=== PATIENT | female | born 1990 | race Caucasian/White ===

== ENCOUNTER 2020-12-23 19:47 | Emergency (ER) | payer OTHER ==
[~2020-12-23] VITALS: Ht 152.4 cm; Wt 57.0 kg
[2020-12-23] MEDS ORDERED: IBUPROFEN 600MG TABLET PO STA (21:02)
[2020-12-23] MEDS ORDERED: ONDANSETRON 4MG ODT PO STA (21:02)
[2020-12-23] MEDS ORDERED: ACETAMINOPHEN 325MG TABLET PO STA (21:02)
[2020-12-23 22:23] LABS: BASOPHILS % 0.3 % (0.0-2.0); EOSINOPHILS % 0.5 % (0.0-5.0); HEMATOCRIT. 39.1 % (36.0-48.0); HEMOGLOBIN. 13.6 g/dL (12.0-16.0); MEAN CORPUSCULAR HEMOGLOBIN 30.1 pg (28.0-32.0); MEAN CORPUSCULAR VOLUME 86.7 fL (81.0-99.0); MEAN PLATELET VOLUME 9.1 fl (7.4-10.4); MONOCYTES % 6.2 % (2.0-8.0); PLATELET 202 x1000/uL (130-400); RED BLOOD CELL COUNT 4.51 mill/uL (4.2-5.4); RED CELL DISTRIBUTION WIDTH 13.1 % (11.6-14.6)
[2020-12-23 22:28] LABS: CHLORIDE 105 mEq/L (98-107)
[2020-12-23 22:30] LABS: CLARITY URINE CLOUDY (CLEAR); COLOR URINE YELLOW (YELLOW); KETONES URINE 2+ (NEGATIVE); LEUKOCYTE ESTERASE URINE 2+ (NEGATIVE); NITRITE URINE POSITIVE (NEGATIVE); OCCULT BLOOD URINE 3+ (NEGATIVE); PH URINE 7.5 (4.5-8.0); PROTEIN URINE 2+ (NEGATIVE); SPECIFIC GRAVITY URINE 1.019 (1.005-1.030)
[2020-12-23 22:31] LABS: PROTHROMBIN TIME 10.9 sec (9.6-11.0)
[2020-12-23 22:32] LABS: ETHANOL BLOOD < 10 mg/dL
[2020-12-23 22:39] LABS: HCG SCREEN NEGATIVE
[2020-12-23 22:41] LABS: *AMPHETAMINES SCREEN URINE NEGATIVE (NEGATIVE); *BARBITURATES SCREEN URINE NEGATIVE (NEGATIVE); *BENZODIAZEPINES SCREEN URINE NEGATIVE (NEGATIVE); *COCAINE SCREEN URINE NEGATIVE (NEGATIVE); METHADONE URINE SCREEN NEGATIVE (NEGATIVE); OPIATES URINE SCREEN NEGATIVE (NEGATIVE)
[2020-12-23 22:42] LABS: PHENCYCLIDINE URINE SCREEN NEGATIVE (NEGATIVE)
[2020-12-23 22:53] LABS: CANNABINOID URINE SCREEN PRESUMTIVE POSITIVE (NEGATIVE)
[2020-12-24] MEDS ORDERED: NITR-87 MT (00:25)
[2020-12-24] MEDS ORDERED: NITROFURANTOIN 100MG M/M CAPSULE PO ONE (00:30)
[2020-12-24 01:05] VITALS: BP 115/84
== END 2020-12-24 01:00 | disposition home or self-care (01) ==
LOC: ER 19:47
DX: R20.0 Anesthesia of skin (principal); N39.0 Urinary tract infection, site not specified; R03.0 Elevated blood-pressure reading, without diagnosis of hypertension
CPT/HCPCS: 36415; 72125; 76700; 80053; 80305; 80320; 81003; 81025; 83605; 83690; 84484; 84703; 85025; 85610; 99285; Q0162; G0480